=== PATIENT | male | born 1950 | race African-American/Black ===

== ENCOUNTER 2020-12-15 15:28 | Emergency (ER) | payer OTHER ==
[~2020-12-15] VITALS: Ht 185.4 cm; Wt 73.0 kg
[2020-12-15 15:48] VITALS: BP 142/86
[2020-12-15] MEDS ORDERED: B50 MT (16:25)
[2020-12-15] MEDS ORDERED: P50 MT (16:25)
[2020-12-15] MEDS ORDERED: PREDNISONE 20MG TABLET PO ONE (16:30)
== END 2020-12-15 16:47 | disposition home or self-care (01) ==
LOC: ER 15:28
DX: L23.5 Allergic contact dermatitis due to other chemical products (principal)
CPT/HCPCS: 99283; J7512

== ENCOUNTER 2020-12-31 14:07 | Emergency (ER) | payer OTHER ==
[~2020-12-31] VITALS: Ht 185.4 cm; Wt 75.0 kg
[~2020-12-31 14:07] MED LIST: B50 MT; P50 MT
[2020-12-31] MEDS ORDERED: FAMOTIDINE 20MG TABLET PO ONE (17:15)
[2020-12-31] MEDS ORDERED: FAMO-135 PO (17:16)
[2020-12-31 18:00] VITALS: BP 149/88
== END 2020-12-31 18:00 | disposition home or self-care (01) ==
LOC: ER 14:07
DX: T49.8X1A Poisoning by other topical agents, accidental (unintentional), initial encounter (principal); L23.5 Allergic contact dermatitis due to other chemical products; Y92.012 Bathroom of single-family (private) house as the place of occurrence of the external cause; R03.0 Elevated blood-pressure reading, without diagnosis of hypertension
CPT/HCPCS: 99282

== ENCOUNTER 2021-01-11 15:17 | Emergency (ER) | payer OTHER ==
[~2021-01-11] VITALS: Ht 185.4 cm; Wt 76.0 kg
[~2021-01-11 15:17] MED LIST changes: +FAMO-135 PO
[2021-01-11 15:22] VITALS: BP 120/81
[2021-01-11] MEDS ORDERED: TC1U15 TP (15:32)
== END 2021-01-11 16:08 | disposition home or self-care (01) ==
LOC: ER 15:17
DX: L25.9 Unspecified contact dermatitis, unspecified cause (principal)
CPT/HCPCS: 99281